=== PATIENT | male | born 1960 | race Caucasian/White ===

== ENCOUNTER 2022-02-14 00:13 | Day surgery (SDC) | payer OTHER, SELFPAY ==
[2021-12-22 15:55] VITALS: BMI 28.8
[2022-01-27 13:07] VITALS: BMI 28.8
[2022-02-14 10:10] VITALS: BP 133/77; PULSE 70; RESP 16; TEMP 36.1; O2SAT 100; BMI 28.6
--- NOTE | 2022-02-14 10:16 | PM.HPGS ---
History of Present Illness History of Present Illness Consent: Risks, benefits, and alternatives have been discussed and questions answered. Patient agrees to proceed with procedure. Chief complaint: neoplasm screening Narrative: Babak Buckner is a 61 year old male Presents for screening colonoscopy. Patient's current weight appetite and bowel movements are normal. He denies abdominal pain. Patient has had no bleeding. Family history is noncontributory. Patient presents today for screening colonoscopy. Review of Systems Review of Systems: Review of systems noncontributory. [facility] Social History Social History Smoking packs per day: 1.5 Smoking cigarettes per day: 30.0 Years smoked: 17 Smoking pack-years: 25.50 Smoking status: Former smoker Tobacco type: cigarettes Alcohol intake: current Substance use: never Substance use type: does not use Spiritual care concerns: No Meds Home Medications and Allergies Home Medications Medication Instructions Recorded Confirmed Type Daily Probiotic 1 cap PO DAILY 12/22/21 02/14/22 History ascorbic acid (vitamin C) 1,000 mg 1 g PO DAILY 12/22/21 02/14/22 History tablet aspirin 81 mg tablet 162 mg PO DAILY 12/22/21 02/14/22 History atorvastatin 40 mg tablet 40 mg PO DAILY 12/22/21 02/14/22 History cholecalciferol (vitamin D3) 50 50 mcg PO EVERY OTHER DAY 12/22/21 02/14/22 History mcg (2,000 unit) tablet (Vitamin D3) fluticasone propionate 50 1 spray intranasal HS 12/22/21 02/14/22 History mcg/actuation nasal spray,suspension ibuprofen 200 mg tablet 200 mg PO Q6H PRN Pain 12/22/21 02/14/22 History krill oil 500 mg capsule 500 mg PO EVERY OTHER DAY 12/22/21 02/14/22 History loratadine 10 mg tablet 10 mg PO DAILY 12/22/21 02/14/22 History losartan 100 mg tablet 100 mg PO DAILY 12/22/21 02/14/22 History lysine 1,000 mg tablet 500 mg PO DAILY 12/22/21 02/14/22 History magnesium 1 tab-cap PO DAILY 12/22/21 02/14/22 History naproxen 250 mg tablet 250 mg PO DAILY 12/22/21 02/14/22 History selenium 200 mcg tablet 200 mcg PO DAILY 12/22/21 02/14/22 History vitamin B complex 0.5 tablet PO DAILY 12/22/21 02/14/22 History vitamin E 400 unit tablet 400 mg PO DAILY 12/22/21 02/14/22 History zinc gluconate 50 mg tablet 50 mg PO DAILY 12/22/21 02/14/22 History Allergies Allergy/AdvReac Type Severity Reaction Status Date / Time peanut Allergy Severe Swelling Verified 02/14/22 10:08 of Lip/Tongue/Throat Vital Signs Vital Signs - 24 hr 02/14/22 10:10 Temperature 97 F L Pulse Rate 70 Respiratory Rate 16 Blood Pressure 133/77 Pulse Oximetry 100 Oxygen Delivery Room Air Exam Narrative: Physical exam reveals patient to be alert. Vital signs stable. HEENT exam is unremarkable. Patient is anicteric. Lungs are clear to auscultation and percussion. Heart is without murmur or extra sounds. Abdomen bowel sounds are present soft nontender with no organomegaly. Digital external rectal exam is normal. Assessment and Plan Assessment and plan (1) Encounter for screening colonoscopy: Code(s): Z12.11 - Encounter for screening for malignant neoplasm of colon Status: Acute Assessment and Plan: Patient presents today for screening colonoscopy. Patient appears to be at average risk for colon polyps. Further recommendations will be given after endoscopy.
[2022-02-14] MEDS: LACTATED RINGERS 1,000 ML 150 ML IV CONT (10:19)
--- NOTE | 2022-02-14 11:01 | WPDANESEPPF ---
Anes - Initial Pre Proc Eval Procedure: Operation Date: 02/14/22 11:30 Proposed Procedures p Screening Colonoscopy - Curly Prieto MD Date/Time: 02/14/22 11:01 Surgeon: Curly Prieto MD Pre Op Diagnosis: neoplasm screening Patient Data Age: 61 Gender: M Height: 1.73 m Weight: 85.5 kg Last Vital Signs Temp 97 F L 02/14/22 10:10 Pulse 70 02/14/22 10:10 Resp 16 02/14/22 10:10 BP 133/77 02/14/22 10:10 Pulse Ox 100 02/14/22 10:10 O2 Del Method Room Air 02/14/22 10:45 Allergies Allergy/AdvReac Type Severity Reaction Status Date / Time peanut Allergy Severe Swelling Verified 02/14/22 10:08 of Lip/Tongue/Throat Home Medications Medication Instructions Recorded Confirmed Type Daily Probiotic 1 cap PO DAILY 12/22/21 02/14/22 History ascorbic acid (vitamin C) 1,000 mg 1 g PO DAILY 12/22/21 02/14/22 History tablet aspirin 81 mg tablet 162 mg PO DAILY 12/22/21 02/14/22 History atorvastatin 40 mg tablet 40 mg PO DAILY 12/22/21 02/14/22 History cholecalciferol (vitamin D3) 50 50 mcg PO EVERY OTHER DAY 12/22/21 02/14/22 History mcg (2,000 unit) tablet (Vitamin D3) fluticasone propionate 50 1 spray intranasal HS 12/22/21 02/14/22 History mcg/actuation nasal spray,suspension ibuprofen 200 mg tablet 200 mg PO Q6H PRN Pain 12/22/21 02/14/22 History krill oil 500 mg capsule 500 mg PO EVERY OTHER DAY 12/22/21 02/14/22 History loratadine 10 mg tablet 10 mg PO DAILY 12/22/21 02/14/22 History losartan 100 mg tablet 100 mg PO DAILY 12/22/21 02/14/22 History lysine 1,000 mg tablet 500 mg PO DAILY 12/22/21 02/14/22 History magnesium 1 tab-cap PO DAILY 12/22/21 02/14/22 History naproxen 250 mg tablet 250 mg PO DAILY 12/22/21 02/14/22 History selenium 200 mcg tablet 200 mcg PO DAILY 12/22/21 02/14/22 History vitamin B complex 0.5 tablet PO DAILY 12/22/21 02/14/22 History vitamin E 400 unit tablet 400 mg PO DAILY 12/22/21 02/14/22 History zinc gluconate 50 mg tablet 50 mg PO DAILY 12/22/21 02/14/22 History Patient hx anesthesia problems: none Family hx anesthesia problems: none Results Review: All pre-operative results and documents have been reviewed as part of the pre-operative evaluation. [facility] Social History Social History Smoking packs per day: 1.5 Smoking cigarettes per day: 30.0 Years smoked: 17 Smoking pack-years: 25.50 Smoking status: Former smoker Tobacco type: cigarettes Alcohol intake: current Substance use: never Substance use type: does not use Spiritual care concerns: No Anes - Eval Final PreProcedure Day of Procedure 02/14/22 11:01 Patient weight: normal Heart: regular rate and rhythm Lungs: clear to auscultation Airway: Mallampati scale class II Neurological: alert and oriented Last oral intake: >/= 8 hours ASA classification: III Emergent: no Anesthetic plan: proceed Anesthesia type and monitoring: general GIVS and standard monitoring Results Review: All pre-operative results and documents have been reviewed as part of the pre-operative evaluation. Informed Consent: The patient's anesthetic plan and its attendant risks and benefits were discussed with the patient/family/POA. Questions were solicited and answers provided to the satisfaction of the patient/family/POA.
[2022-02-14 11:12] VITALS: BP 111/67; PULSE 73; RESP 18; O2SAT 97
[2022-02-14 11:22] VITALS: BP 112/71; PULSE 63; RESP 20; O2SAT 97
[2022-02-14 11:32] VITALS: BP 120/75; PULSE 66; RESP 20; O2SAT 99
[2022-02-14 11:42] VITALS: BP 131/84; PULSE 60; RESP 20; O2SAT 99
== END 2022-02-14 11:47 | disposition home or self-care (01) ==
PROVIDERS: PCP Internal Medicine; Visit Provider Internal Medicine Gastroenterology
PROC: 0DJD8ZZ Inspection of Lower Intestinal Tract, Via Natural or Artificial Opening Endoscopic (ICD-10-PCS; CPT 45378; principal; 2022-02-14 11:30)
DX: Z12.11 Encounter for screening for malignant neoplasm of colon (principal); D12.2 Benign neoplasm of ascending colon; K57.30 Diverticulosis of large intestine without perforation or abscess without bleeding; K63.5 Polyp of colon; Z79.82 Long term (current) use of aspirin; Z87.891 Personal history of nicotine dependence
CPT/HCPCS: 45385; 88305; J2704; J7120

== ENCOUNTER 2025-02-18 08:13 | Outpatient (CLI) | payer MEDICARE, OTHER, SELFPAY ==
--- NOTE | ~2025-02-18 | MR_ITS ---
EXAMINATION: MR lumbar spine wo con DATE: 02/18/2025 08:48 INDICATION: Low back pain. TECHNIQUE: Magnetic resonance imaging (MRI) of the lumbar spine was performed without intravenous contrast. Sequences included sagittal T2-weighted FSE, sagittal T2-weighted FS FSE, sagittal T1-weighted FSE, and axial T2-weighted FSE. COMPARISON: None FINDINGS: There is 5 degrees levocurvature of lumbar spine. Vertebral body heights are normal. There is moderately decreased disc height at L5-S1. The distal spinal cord signal intensity is normal. The conus medullaris is at L2. The following disc levels are specifically discussed: L1-L2: The disc does not extend beyond the endplate margin. There is mild bilateral facet joint osteoarthritis. There is no neural foraminal stenosis. There is no central canal stenosis. L2-L3: The disc is mildly bulging. There is mild bilateral facet joint osteoarthritis. There is mild bilateral neural foraminal stenosis. There is no central canal stenosis. L3-L4: The disc is bulging. There is mild bilateral facet joint osteoarthritis. There is mild bilateral neural foraminal stenosis. There is no central canal stenosis. L4-L5: The disc is bulging. There is mild bilateral facet joint osteoarthritis. There is mild bilateral neural foraminal stenosis. There is mild central canal stenosis. L5-S1: The disc is bulging and has an annular fissure. There is mild right and moderate left facet joint osteoarthritis. There is mild bilateral neural foraminal stenosis. There is mild central canal stenosis. IMPRESSION: 1. Moderate lower lumbar spondylosis. Reviewed, dictated and finalized at location E.
== END 2025-02-18 08:14 | disposition home or self-care (01) ==
PROVIDERS: PCP Internal Medicine Infectious Disease; Visit Provider Physician Assistant
DX: M47.816 Spondylosis without myelopathy or radiculopathy, lumbar region (principal); L40.50 Arthropathic psoriasis, unspecified; R05.9 Cough, unspecified; M54.50 Low back pain, unspecified
CPT/HCPCS: 72148